=== PATIENT | male | born 1980 | race African-American/Black ===

== ENCOUNTER 2018-12-14 18:22 | Emergency (ER) | payer SELFPAY ==
[~2018-12-14] VITALS: Ht 162.6 cm; Wt 74.8 kg
[2018-12-14 18:27] VITALS: BP 130/88; PULSE 73; RESP 18; Ht 162.6 cm; Wt 74.8 kg
[2018-12-14] MEDS ORDERED: NAPR-985 PO (19:39)
--- NOTE | 2018-12-14 19:59 | ERD ---
ER Documentation Chief Complaint Chief Complaint LEFT TESICLE PAIN AND BILATERAL AXILIA RASH X4DAYS HPI This is a 38-year-old male patient presents emergency room with complaint of lumps found in left axilla. Patient states he had similar lumps in right axilla 2 weeks ago that have since resolved. No fever, no arm pain or swelling, no upper extremity paresthesias. Triage note states patient has left testicle pain however patient now states he has had pain in the past but not today. Patient denies chronic medical problems ROS All systems reviewed and are negative except as per history of present illness. Medications Home Meds Active Scripts Naproxen* (Naprosyn*) 500 Mg Tablet, 500 MG PO BID PRN for PAIN AND/OR INFLAMMATION, #30 TAB Prov:BISMARK ORTIZ CELL TECHNICIAN 12/14/18 Allergies Allergies: Coded Allergies: No Known Allergy (Unverified , 12/14/18) PMhx/Soc Medical and Surgical Hx: pt denies Medical Hx, pt denies Surgical Hx Hx Alcohol Use: Yes (occasionally) Hx Substance Use: No Hx Tobacco Use: No Smoking Status: Never smoker FmHx Family History: No diabetes, No coronary disease, No other Physical Exam Vitals Vital Signs Date Temp Pulse Resp B/P (MAP) Pulse Ox O2 O2 Flow FiO2 Time Delivery Rate 12/14/18 97.6 73 18 130/88 98 18:27 (102) Physical Exam Const: No acute distress Head: Atraumatic Eyes: Normal Conjunctiva ENT: Normal External Ears, Nose and Mouth. Neck: Full range of motion. No meningismus. No lymphadenopathy Resp: Clear to auscultation bilaterally Cardio: Regular rate and rhythm, no murmurs Abd: Soft, non tender, non distended. Normal bowel sounds. No hepato-or splenomegaly. Gu: Testicles equally descended bilaterally, no lesions, no swelling, no varicosities, no hernia BL Back: No midline or flank tenderness Ext: No cyanosis, or edema to UE or LE Neur: Awake and alert Psych: Normal Mood and Affect Skin: Right: no redness, no swelling, no lesions, nontender, no induration, no lymphadenopathy Left: 3 lumps approx 3-4 mm wide, nonfluctuant, nonmobile, normothermic, nontender, no lymphadenopathy, no induration Procedures/MDM Is a 38-year-old male patient who presents to emergency room with complaint of by lateral axillary lumps. ED COURSE: The patient was stable throughout ED course. MEDICATIONS GIVEN: Declines MDM: Testicular complaint: Patient does not appear to have testicular torsion, hernia, infection. Patient denies difficulty urinating, no difficulty with BM. Denies any pain at this time. Patient states he occasionally observes a left groin bulge particularly after exercising. Patient was instructed on signs and symptoms of hernia and when to seek emergent medical treatment. Axillary complaint: Lesions in axilla do not appear to be cellulitis at this time, most likely the lesions are a superficial folliculitis that will resolve with use of NSAIDs and warm compress. There is no lymphedema, no erythema, no open lesions. Patient has been shaving his armpits. Patient has been instructed on using warm compresses, person, and avoiding irritating deodorants to resolve lesions. Patient was also instructed to follow-up with primary care physician for reevaluation and possible referral to dermatology. Patient states he currently does not have a primary care physician. Patient was provided with referral to local primary care. Patient was also instructed on signs and symptoms of red flags and worsening of condition and when to seek emergent medical treatment. DISPOSITION: The patient has been discharge home to follow-up with community physician. Departure Diagnosis: Primary Impression: Folliculitis Condition: Stable Patient Instructions: Folliculitis Referrals: [facility] YOU HAVE RECEIVED A MEDICAL SCREENING EXAM AND THE RESULTS INDICATE THAT YOU DO NOT HAVE A CONDITION THAT REQUIRES URGENT TREATMENT IN THE EMERGENCY DEPARTMENT. FURTHER EVALUATION AND TREATMENT OF YOUR CONDITION CAN WAIT UNTIL YOU ARE SEEN IN YOUR DOCTORS OFFICE WITHIN THE NEXT 1-2 DAYS. IT IS YOUR RESPONSIBILITY TO MAKE AN APPOINTMENT FOR FOLOW-UP CARE. IF YOU HAVE A PRIMARY DOCTOR --you should call your primary doctor and schedule an appointment IF YOU DO NOT HAVE A PRIMARY DOCTOR YOU CAN CALL OUR PHYSICIAN REFERRAL HOTLINE AT IF YOU CAN NOT AFFORD TO SEE A PHYSICIAN YOU CAN CHOSE FROM THE FOLLOWING [facility] [address] [facility] [address] [facility] [address] [facility] [address] [facility] [facility] [address] Additional Instructions: Thank you very much for allowing us to participate in your care. Your health and safety is our top priority at [facility]. Call your primary care doctor TOMORROW for an appointment during the next 2-4 days and bring all the information and medications prescribed. Have prescriptions filled and follow precisely the directions on the label. If the symptoms get worse and your provider is unavailable, return to the Emergency Department immediately. USE WARM COMPRESS TO ARMPITS FOR 20 TO 30 MINUTES 2-3 TIMES PER DAY USE NAPROSYN NEEDED FOR PAIN AND COMFORT FOLLOW-UP WITH PRIMARY CARE DOCTOR FOR FURTHER EVALUATION AND POSSIBLE REFERRAL TO A SUPERVISOR [employer] RETURN TO THE EMERGENCY ROOM WITH INCREASED SWELLING, REDNESS, FEVERS, PAIN BISMARK ORTIZ NP Dec 14, 2018 19:53
== END 2018-12-14 20:09 | disposition home or self-care (01) ==
LOC: FTE 18:22
DX: L73.9 Follicular disorder, unspecified (principal)
CPT/HCPCS: 99283; L4386